=== PATIENT | male | born 1985 | race Caucasian/White ===

== ENCOUNTER 2020-07-30 10:13 | Emergency (ER) | payer BC, SELFPAY ==
[2020-07-30 10:20] VITALS: BP 125/69; PULSE 87; RESP 19; TEMP 37.1; O2SAT 98
--- NOTE | 2020-07-30 10:37 | HMH.EDUTC ---
[facility] [place] Clinical Impression: Syphilis Disposition: Home, Self-Care Condition on Discharge: Good Instructions: Syphilis, Penicillin G Benzathine Injection, DI for Syphilis Additional Instructions: Follow u with your Family Doctor as advised for further treatment and evaluation Return if needed Straight to ER if any life threatening symptoms Referrals: Rebecca Mace APRN [Primary Care Provider] - As needed Time of Disposition: 10:47 Medical Decision Making - Ciro Inquiry Pt receiving controlled substance: No Ciro was queried for this patient: No Vital Signs: 07/30/20 10:20 07/30/20 11:18 Temperature 98.8 F 98.8 F Temperature Source Oral Pulse Rate 87 Pulse Rate [Left Brachial] 87 Respiratory Rate 19 19 Blood Pressure 125/69 Blood Pressure [Right Arm] 125/69 Blood Pressure Mean [Right Arm] 87 Blood Pressure Source [Right Arm] Automatic Cuff Blood Pressure Position [Right Arm] Sitting 02 Sat by Pulse Oximetry 98 Oxygen Delivery Method Room Air Orders (Tests/Meds): ED MEDICATIONS Discontinued Medications Generic Name Dose Route Start Last Admin Trade Name Freq PRN Reason Stop Dose Admin Penicillin G Benzathine 2,400,000 unit 07/30/20 10:40 07/30/20 10:55 Penicillin G Benzathine 1,200,000 Units/2ml Syringe IM 07/30/20 10:41 2,400,000 unit ONCE ONE Administration Protocol Medical Decision Narrative: Called [facility] and they advised patient did test positive for Syphlisis and they wanted to have him treated with 2.4million units of PCN x 1 dose then he is to follow up with them as he was instructed [facility] [place] H[place] - General Stated complaint: needs shot of pencillian Time Seen by Provider: 07/30/20 10:37 Mode of Arrival: Ambulatory Source of Information: Patient Limitations: No Limitations Description of Symptoms (Recalled from Triage Doc. by RN): PATIENT STATES HE RECENTLY TESTED POSITIVE FOR SYPHILIS AND IS NEEDING A PENICILLIN SHOT PER PCP HEENT Symptoms (Recalled from RN notes): No Resp Symptoms (Recalled from RN notes): No Skin Symptoms (Recalled from RN notes): No MS Symptoms (Recalled from RN notes): No Functional Status (Recalled from RN notes): WNL - History of Present Illness Provider Complaint: Patient state that he was recently tested for STD and his PCP called him and told him he was positive for syphilis and needed to come in and get PCN shot States that the office was in [place] and he asked if he could come in here and they told him yes to have us call - Related Data Allergies Allergy/AdvReac Type Severity Reaction Status Date / Time No Known Allergies Allergy Verified 07/30/20 10:38 - Worker's Comp Is this a Worker's Comp case?: No H History - Hepatitis A Screen Drug use history?: No High risk sexual behaviors?: No History of sexually transmitted infection?: No Currently employed?: No Childcare worker?: No Do you have indoor plumbing?: Yes Do you have electricity?: Yes Attestation statement:: This patient has been screened for Hepatitis A risk factors. I have reviewed the patient's past medical history: Yes - Social History Alcohol Intake: never Occupational Status: other ROS Obtained: Yes All systems reviewed & no additional complaints, Yes Systems reviewed as appropriate & no additional complaints - Constitutional Constitutional: Reports system reviewed and no additional complaints, except as docu, Denies body ache, Denies chills, Denies fever(s), Denies headache(s) - ENT Ears, Nose, Mouth, and Throat: Reports system reviewed and no additional complaints, except as docu - Cardiovascular Cardiovascular: Reports system reviewed and no additional complaints, except as docu Physical Exam - General General appearance: alert, in no apparent distress - ENT ENT exam: Present: normal exam, normal oropharynx, mucous membranes moist, TM's normal bilaterally, normal external ear exa
[2020-07-30 11:18] VITALS: BP 125/69; PULSE 87; RESP 19; TEMP 37.1; O2SAT 98
== END 2020-07-30 11:20 | disposition home or self-care (01) ==
PROVIDERS: Emergency Provider Nurse Practitioner; PCP Nurse Practitioner Family
DX: A53.9 Syphilis, unspecified (principal)
CPT/HCPCS: 96372; 99201; J0561